=== PATIENT | female | born 1970 | race Caucasian/White ===

== ENCOUNTER 2023-05-15 09:49 | Day surgery (SDC) | payer OTHER, BC ==
[~2023-05-15] VITALS: Ht 157.5 cm; Wt 68.2 kg
[~2023-05-15 09:49] MED LIST: DAILY MULTIPLE1 EACH PO; ENBREL50 MG/1 M1 SUB-Q; FOLIC ACID1 MG PO; HYDROCODON-ACE1 EA10 PO; MACROBID 100 M100 MG PO; MAXALT10 MG PO; METHOTREXATE2.5 MG PO; METOPROLOL SUCC50 MG PO; NORCO 5-325 TA1 EACH PO; ONDANSETRON ODT8 MG PO; PERCOCET 7.5-31 EACH PO; PYRIDIUM200 MG PO; TOPROL XL50 MG PO
[2023-05-15 10:14] VITALS: BP 137/89
[2023-05-15] MEDS ORDERED: TALTZ AUTO80 MG/1 ML SUB-Q (10:23)
--- NOTE | 2023-05-15 12:31 | NUR ---
05/15/23 1231 Pema Byrd HOB ELEVATED AND OXYGEN REMOVED. PATIENT ROLLS ONTO HER BACK FOR COMFORT.
[2023-05-15 13:16] VITALS: BP 132/74
--- NOTE | 2023-05-16 16:28 | OR ---
[facility] [address], [place] [address] Signed DATE OF OPERATION: 05/15/2023 SURGEON: Jerel Tubbs MD PREOPERATIVE DIAGNOSIS: Colon screening. POSTOPERATIVE DIAGNOSIS: Normal colon to cecum. PROCEDURE: Total colonoscopy to cecum. ANESTHESIA: Intravenous sedation fentanyl 150 mcg, Versed 6 mg. INDICATION: This 52-year-old white woman is a patient of Dr. Puente in [place]. She has been referred for screening colonoscopy. She has no family history of colon cancer and no current symptoms of bleeding, diarrhea or constipation. She understands the risk of colonoscopy including but not limited to bleeding, infection, and perforation and wished to proceed. FINDINGS: The prep was excellent. Complete colonoscopy was undertaken of the cecum with full intubation of the cecum. There was no evidence of polyps, diverticular formation, colitis, cancer, or other abnormality. PROCEDURE IN DETAIL: The patient was brought to the endoscopy suite and placed in lateral decubitus position given intravenous sedation to the point of slurred speech and nystagmus. Digital rectal examination was normal. An Olympus video colonoscope was passed in the rectum and manipulated throughout the colon ultimately intubating the cecum itself. The ileocecal valve and appendiceal orifice were normal. Scope was withdrawn from that point and examination throughout showed no sign of abnormality specifically no polyps, diverticular formation, colitis, or cancer. Retroflexed view was normal as well. The scope was removed. The patient was taken to the recovery room in good condition. Electronically Signed By: JEREL TUBBS MD 05/16/23 1628 PATIENT NAME: WILTON RODRIGUEZ OPERATIVE REPORT DATE OF : 74 REPORT #: [id number] PHYSICIAN: JEREL TUBBS MD PCP: SNEHAL PUENTE MD REPORT IS CONFIDENTIAL AND NOT TO BE RELEASED WITHOUT AUTHORIZATION [facility] [address] [facility] [place], [place] [address] Signed CONCLUDING DIAGNOSIS: Normal colon. PLAN: Recommend repeat colonoscopy in 10 years, sooner if clinically indicated. She will return to the ongoing care of Dr. Puente in [place]. MD CASANDRA Joshi/RYANL /[id number] cc: Dr. Puente Copies: ~ Electronically Signed By: JEREL TUBBS MD 05/16/23 1628 PATIENT NAME: WILTON RODRIGUEZ OPERATIVE REPORT DATE OF : 74 REPORT #: [id number] PHYSICIAN: JEREL TUBBS MD PCP: SNEHAL PUENTE MD REPORT IS CONFIDENTIAL AND NOT TO BE RELEASED WITHOUT AUTHORIZATION
== END 2023-05-15 13:20 | disposition home or self-care (01) ==
LOC: OPS 09:49 → DS 09:58 → OPS 10:00 → DS 12:15 → OPS 13:20
PROVIDERS: ATTEND Surgery
PROC: 0DJD8ZZ Inspection of Lower Intestinal Tract, Via Natural or Artificial Opening Endoscopic (ICD-10-PCS; principal; 2023-05-15 10:45)
DX: Z12.11 Encounter for screening for malignant neoplasm of colon (principal); D16.21 Benign neoplasm of long bones of right lower limb; L40.50 Arthropathic psoriasis, unspecified; I10 Essential (primary) hypertension; Z98.890 Other specified postprocedural states; Z88.1 Allergy status to other antibiotic agents; Z88.5 Allergy status to narcotic agent; Z79.899 Other long term (current) drug therapy
CPT/HCPCS: 36415; 84703; 99153; G0500; J1790; J2250; J2405; J3010; J7121